=== PATIENT | female | born 1995 | race Two or more races ===

== ENCOUNTER 2018-06-13 09:22 | Emergency (ER) | payer BC ==
[~2018-06-13] VITALS: Ht 160 cm; Wt 63.5 kg
[2018-06-13 09:25] VITALS: BP 120/80; PULSE 90; RESP 18; Ht 160 cm; Wt 63.5 kg
--- NOTE | 2018-06-13 10:06 | ERD ---
ER Documentation Chief Complaint Chief Complaint right toe pain since yesterday HPI 23-year-old female with no past medical history presents pain in first digit right foot. Patient states that she fell on her yesterday p.m. Is having difficulty ambulating. In addition patient states that she has been having some pain in her right shoulder. Pain is made worse on extension of shoulder. She thinks she may have injured her shoulder in the same fall. Denies treatments. Denies numbness tingling. Denies past medical history. Denies allergies. Denies medications. Denies surgeries. Denies social. ROS All systems reviewed and are negative except as per history of present illness. Medications Home Meds Active Scripts Ibuprofen* (Motrin*) 600 Mg Tab, 600 MG PO Q6 for Pain, #30 TAB 0 Refills Prov:ADDISON AMADOR 06/13/18 Allergies Allergies: Coded Allergies: No Known Allergy (Unverified , 06/13/18) PMhx/Soc Medical and Surgical Hx: pt denies Surgical Hx Hx Respiratory Disorders: Yes (asthma) Hx Alcohol Use: Yes Hx Substance Use: No Hx Tobacco Use: No FmHx Family History: No diabetes, No coronary disease, No other Physical Exam Vitals Vital Signs Date Temp Pulse Resp B/P (MAP) Pulse Ox O2 O2 Flow FiO2 Time Delivery Rate 06/13/18 97.7 90 18 120/80 98 09:25 (93) Physical Exam Const: No acute distress Resp: Clear to auscultation bilaterally Cardio: Regular rate and rhythm, no murmurs Extrm; Tenderness to palpation over the proximal phalange of first right toe. Distal sensation and cap refill intact. No bony deformity, ecchymosis, edema. Impaired range of motion motion. Anterior aspect of right shoulder mildly tender to palpation with limited extension. No bony deformities, edema, erythema noted. Psych: Normal Mood and Affect Results 24 hrs Laboratory Tests Test 06/13/18 10:05 POC Beta HCG, Qualitative NEGATIVE Procedures/MDM DIAGNOSTIC IMAGING REPORT Patient: CHRIS RAMIREZ : 1995 Age: 23 Sex: F MR #: [id number] DOS: 06/13/18 0954 Ordering MD: ADDISON AMADOR Location: [facility] Room/Bed: PROCEDURE: Right toes CLINICAL INDICATION: trauma to toe TECHNIQUE: Routine views of the toes including AP, internal oblique and lateral views of the right great toe performed. COMPARISON: None FINDINGS: Acute, small minimally-displaced fractures of the medial aspect of the distal proximal phalanx and the volar base of the distal phalanx. Moderate adjacent soft tissue swelling. No dislocation or foreign body. IMPRESSION: Small mildly displaced fractures at the volar base of the distal phalanx, and the medial/distal aspect of the proximal phalanx. RPTAT:AAJJ Physician Sheyla Date Time Electronically viewed and signed by Physician Sheyla on 06/13/2018 10:26 RF/ CC: ADDISON AMADOR [id number] DIAGNOSTIC IMAGING REPORT Patient: CHRIS RAMIREZ : 1995 Age: 23 Sex: F MR #: [id number] DOS: 06/13/18 1053 Ordering MD: ADDISON AMADOR Location: [facility] Room/Bed: PROCEDURE: XR Right Shoulder CLINICAL INDICATION: Injury, pain TECHNIQUE: AP internal and external rotation views and a Y-view were submitted. COMPARISON: None FINDINGS: Osseous structures: appear well mineralized and intact with no fracture or destructive process identified. Joint spaces: The glenohumeral joint appears unremarkable. The AC joint appears normal. Soft tissues: appear unremarkable. IMPRESSION: Unremarkable right shoulder. Physician Jacque Date Time Electronically viewed and signed by Physician Jacque on 06/13/2018 11:14 RH/ CC: ADDISON AMADOR [id number] ER course: Toe x-ray -fracture of distal phalanx. Shoulder x-ray -negative. Splint applied to right first toe. Circulation, sensation, and range of motion intact after splint application. Patient given orthopedic shoe and able to ambulate. MDM: 23-year-old female with no past medical history presents pain in first digit right foot. Patient states that she fell on her yesterday p.m. Is having difficulty ambulating. In addition patient states that she has been having some pain in her right shoulder. Pain is made worse on extension of shoulder. She thinks she may have injured her shoulder in the same fall. Denies treatments. X-rays were taken and patient was given a splint and orthopedic shoe. Patient given Rx for ibuprofen. I have low suspicion for compartment syndrome, compartments soft. Patient discharged with strict ER precautions. Patient advised to follow up with PMD. All questions answered at discharge. Departure Diagnosis: Primary Impression: Fracture of toe Encounter type: initial encounter Toe: great toe Fracture type: closed Phalanx: proximal Fracture alignment: displaced Laterality: right Qualified Codes: S92.411A - Displaced fracture of proximal phalanx of right great toe, initial encounter for closed fracture Additional Impression: Right shoulder pain Chronicity: acute Qualified Codes: M25.511 - Pain in right shoulder Condition: Stable CYNDIESHIRLENE RUDDEL Jun 13, 2018 10:06
[2018-06-13] MEDS ORDERED: IBUP-1542 PO (10:38)
== END 2018-06-13 11:48 | disposition home or self-care (01) ==
LOC: FTE 09:22
DX: S92.411A Displaced fracture of proximal phalanx of right great toe, initial encounter for closed fracture (principal); S49.91XA Unspecified injury of right shoulder and upper arm, initial encounter; J45.909 Unspecified asthma, uncomplicated; W18.30XA Fall on same level, unspecified, initial encounter; Y92.9 Unspecified place or not applicable
CPT/HCPCS: 73660; 81025